=== PATIENT | female | born 1955 | race Caucasian/White ===

== ENCOUNTER 2020-06-25 21:30 | Emergency (ER) | payer OTHER, MEDICAID ==
[~2020-06-25] VITALS: Ht 157.5 cm; Wt 61.2 kg
[2020-06-25] MEDS ORDERED: OMEP20TA5 PO (21:41)
--- NOTE | 2020-06-25 21:48 | NUR ---
Dr. Preston at bedside for MSE
[2020-06-25] MEDS ORDERED: AMOXICILLIN-CLAVUL 875-125MG TABLET PO ONE (22:00)
[2020-06-25] MEDS ORDERED: TDAP DIPH,PERTUSS,TET VAC/PF 0.5 ML DISP.SYRIN IM ONE ×2 (22:00)
[2020-06-25] MEDS ORDERED: AMOXICILLIN-CLAVUL 875-125MG TABLET ONE (22:00)
--- NOTE | 2020-06-25 22:08 | NUR ---
Patient discharged to home in stable condition. Written and verbal after care instructions given. Patient verbalizes understanding of instructions. Stressed follow up or return to ER for worsening s/s. AA/OX4 ABLE TO SPEAK IN COMPLETE SENTENCES AMBULATORY WITH STEADY GAIT ALL BELONGINGS WITH PT
[2020-06-25 23:44] VITALS: BP 129/93
== END 2020-06-25 22:08 | disposition home or self-care (01) ==
LOC: ER 21:32
DX: S81.831A Puncture wound without foreign body, right lower leg, initial encounter (principal); W55.01XA Bitten by cat, initial encounter; Y93.89 Activity, other specified; Y92.039 Unspecified place in apartment as the place of occurrence of the external cause; K21.9 Gastro-esophageal reflux disease without esophagitis
CPT/HCPCS: 90715; A4663

== ENCOUNTER 2022-09-05 20:51 | Emergency (ER) | payer OTHER ==
[~2022-09-05] VITALS: Ht 157.5 cm; Wt 63.5 kg
[~2022-09-05 20:51] MED LIST: OMEP20TA5 PO
--- NOTE | 2022-09-05 21:15 | NUR ---
Patient walked to ER with steady gait, NAD noted. Patient is a/ox4
--- NOTE | 2022-09-05 21:21 | NUR ---
Dr Briceno at bedside, MSE in progress
[2022-09-05] MEDS ORDERED: OXYCODONE/APAP 5-325 MG TABLET ONE (21:35)
[2022-09-05] MEDS ORDERED: OXYCODONE/APAP 5-325 MG TABLET PO ONE (21:45)
--- NOTE | 2022-09-05 21:48 | NUR ---
Patient taken to CT
--- NOTE | 2022-09-05 22:00 | NUR ---
Patient is back from CT
[2022-09-05] MEDS ORDERED: ACETAMINOPHEN 325 MG TABLET-SA PATIENTS-PAIN ONLY PO ONE (22:15)
[2022-09-05] MEDS ORDERED: ACETAMINOPHEN 325 MG TABLET ONE (22:16)
[2022-09-05 22:33] VITALS: BP 120/80
--- NOTE | 2022-09-05 22:33 | NUR ---
Patient discharged to home in stable condition. AOX4, walked out with partner. Written and verbal after care instructions given. Patient verbalizes understanding of instructions. Stressed follow up or return to ER for worsening s/s.
== END 2022-09-05 22:36 | disposition home or self-care (01) ==
LOC: ER 20:54
DX: R51.9 Headache, unspecified (principal); T14.90XS Injury, unspecified, sequela; W01.0XXS Fall on same level from slipping, tripping and stumbling without subsequent striking against object, sequela; K21.9 Gastro-esophageal reflux disease without esophagitis; D32.9 Benign neoplasm of meninges, unspecified; R29.6 Repeated falls
CPT/HCPCS: 70450; A4663

== ENCOUNTER 2022-12-13 16:08 | Emergency (ER) | payer OTHER ==
[~2022-12-13] VITALS: Ht 152.4 cm; Wt 63.5 kg
[2022-12-13] MEDS ORDERED: AMOXICILLIN-CLAVUL 875-125MG TABLET ONE (16:43)
[2022-12-13] MEDS ORDERED: AMOXICILLIN-CLAVUL 875-125MG TABLET PO ONE (16:45)
--- NOTE | 2022-12-13 16:48 | NUR ---
PT IS IN ROOM #1B. DR LR EVALUATED THE PT.
[2022-12-13] MEDS ORDERED: AMOX-430 PO (17:38)
--- NOTE | 2022-12-13 17:46 | NUR ---
PT WAS D/C'd TO HOME. D/C INSTRUCTIONS GIVEN TO THE PT BY DR LR.
[2022-12-13 17:47] VITALS: BP 142/69
== END 2022-12-13 17:48 | disposition home or self-care (01) ==
LOC: ER 16:08
DX: S61.451A Open bite of right hand, initial encounter (principal); W55.01XA Bitten by cat, initial encounter; Y92.89 Other specified places as the place of occurrence of the external cause; Z88.1 Allergy status to other antibiotic agents; K21.9 Gastro-esophageal reflux disease without esophagitis
CPT/HCPCS: 73130; A4663